=== PATIENT | male | born 1965 | race African-American/Black ===

== ENCOUNTER 2016-12-18 16:29 | Emergency (ER) | payer OTHER ==
[~2016-12-18] VITALS: Ht 167.6 cm; Wt 73.1 kg
[2016-12-18 17:52] LABS: EOSINOPHIL (%) 1.9 % (0-5); EOSINOPHIL COUNT 0.1 K/uL (0-0.3); HEMATOCRIT 37.4 % (38.0-50.0); IMMATURE GRANULOCYTE (%) 0.1 % (0.0-0.7); INSTRUMENT ABS NEUTROPHIL CT 4.9 K/uL; LYMPHOCYTE COUNT 1.2 K/uL (1.0-2.8); MCHC 33.7 G/DL (30.0-36.0); MCV 86.2 FL (86-99); MEAN PLAT.VOLUME 9.3 uM^3 (9.0-12.4); MONOCYTE (%) 11.3 % (3-12); MONOCYTE COUNT 0.8 K/uL (0-0.8); NEUTROPHIL (%) 69.7 % (45-76); NEUTROPHIL COUNT 4.9 K/uL (1.8-6.4); PLATELET COUNT 276 K/uL (156-360); RBC DIS.WIDTH-CV 13.1 % (11.8-14.6); RBC DIS.WIDTH-SD 40.9 % (39-53); RED BLOOD COUNT 4.34 M/uL (4.00-5.50)
[2016-12-18 17:59] LABS: CHLORIDE 100 mEq/L (99-109); POTASSIUM 3.8 mEq/L (3.7-5.4); SODIUM 138 mEq/L (136-147)
[2016-12-18 18:01] LABS: GLUCOSE 126 mg/dL (70-99)
[2016-12-18 18:02] LABS: INTER. NORMALIZED RATIO 1.1; PROTHROMBIN TIME 12.3 SEC (10.2-12.9)
[2016-12-18 18:03] LABS: ANION GAP 13 MEQ/L (2-14)
[2016-12-18 18:05] LABS: GFR ESTIMATE (CALCULATED) > 59 mL/min/; PTT 26.5 SEC (25-37)
[2016-12-18 18:06] LABS: UREA NITROGEN (BUN) 10 mg/dL (9-23)
[2016-12-18] MEDS ORDERED: CLEOCIN300 MG PO (20:15)
[2016-12-18 20:26] VITALS: BP 132/95
== END 2016-12-18 20:42 ==
LOC: EME 16:29
PROVIDERS: Emergency Medicine
DX: L03.116 Cellulitis of left lower limb (principal); R51 Headache
CPT/HCPCS: 80048; 85025; 85610; 85730; 93971; 99281; 99285